=== PATIENT | male | born 1985 | race African-American/Black ===

== ENCOUNTER → 2016-09-20 | Day surgery (SDC) | payer OTHER ==
[~2016-09-20] VITALS: Ht 185.4 cm; Wt 6.0 kg
[~2016-09-20] MED LIST: BUPIVACAINE HCL PF 0.5% 30 ML VIAL NB ONE; DEXAMETHASONE SOD PHOS 4 MG/ML VIAL ONE; DICY10 PO; DO NOT ADM ANY ANTICOAGULANT DRUGS XX PRN; GENTAMICIN SULFATE 80 MG/2 ML VIAL ONE; HYDR-3533 PO; INSULIN HUMAN REGULAR 1,000 UNITS/10 ML VIAL SQ PRN; LACTATED RINGER'S 1000 ML INJ 1,000 ML IV ONE; LACTATED RINGER'S 1000 ML IV SCH; METOPROLOL TARTRATE 25 MG TAB PO PRN; MIDAZOLAM HCL 2 MG/2 ML VIAL ONE; MIDAZOLAM HCL 5 MG/5 ML VIAL ONE; MULTTAB67 PO; NEOSTIGMINE 3 MG/3 ML SYR IV ONE; ONDANSETRON HCL 4 MG/2 ML VIAL IV PUSH ONE; POVIDONE IODINE 7.5% SCRUB 118 ML BOTTLE TOP SCH; PROPOFOL 200 MG/20 ML AMP IV ONE; SODIUM CHLORID 0.9% 500 ML IV SCH; ZOFR4TAB3 SL; ceFAZolin 2 GM PREMIX 50 ML IV SCH; fentaNYL CITRATE 250 MCG/5 ML AMP ONE
[2016-09-20 13:52] VITALS: BP 123/77; PULSE 64; RESP 16; TEMP 98.2; O2SAT 98
[2016-09-20 14:28] LABS: AUTOMATED NEUTROPHIL # 1.9 TH/MM3 (1.8-7.7); BASOPHIL % 1.4 % (0.0-2.0); EOSINOPHIL # 0.2 TH/MM3 (0-0.4); EOSINOPHIL % 5.4 % (0.0-4.0); HEMATOCRIT 42.1 % (39.0-51.0); HEMO FLAGS DIFF FINAL; LYMPHOCYTE # 0.9 TH/MM3 (1.0-4.8); MEAN CELL VOLUME 80.4 FL (80.0-100.0); MEAN CORPUSCULAR HEMOGLOBIN 26.4 PG (27.0-34.0); MEAN CORPUSCULAR HGB CONC 32.9 % (32.0-36.0); MONO % 11.3 % (0.0-8.0); NEUT % 56.9 % (16.0-70.0); PLATELET COUNT 205 TH/MM3 (150-450); RED BLOOD COUNT 5.24 MIL/MM3 (4.50-5.90); RED CELL DISTRIBUTION WIDTH 13.2 % (11.6-17.2); WHITE BLOOD COUNT 3.4 TH/MM3 (4.0-11.0)
[2016-09-20 17:35] VITALS: BP 133/73; PULSE 60; RESP 20; TEMP 97.8; O2SAT 100
--- NOTE | 2016-09-20 17:39 | MP ---
cc: CHRISTIANO DUNN M.D. DATE OF SURGERY: 09/20/2016 PREOPERATIVE DIAGNOSIS: Left Achilles tendon rupture. POSTOPERATIVE DIAGNOSES Left Achilles tendon rupture. PROCEDURE Surgical repair left Achilles tendon rupture. SURGEON Dr. Christiano Dunn. CLIENT COORDINATOR: MERON Flaherty ANESTHESIA General as well as 50 cc. COMPLICATIONS: None. JUSTIFICATIONS: The patient is a 31-year male who injured his left leg and sustained a complete rupture of the Achilles tendon. He has had significant pain, swelling, weakness regards to his condition. He was evaluated by the undersigned at the [facility]. The patient counseled as and alternatives of named surgical procedure. He did wish to proceed with surgery. The procedure in detail, a written consent obtained. The patient identified by name, taken to the operating room, placed supine on operating room table, General anesthesia was administered as well 2 grams of IV Ancef. The patient was then carefully turned to a prone position. All bony prominences and pressure points were well padded. The left lower extremity prepped and draped using isopropyl alcohol, Hibiclens solution and DuraPrep solution. After appropriate time-out was performed a one inch incision was made over the posterior aspect of the left leg. Dissection was carried to the level of the Achilles tendon. There was evidence of complete rupture of the tendon with retraction of the proximal distal ends. A 10 blade scalpel used to perform debridement of tendon ends. #2 FiberWire suture was placed in a cracked whipstitch pattern in the proximal and distal portions of the tendons and the two tendon ends were then sutured together with a FiberWire. The repair was then further reinforced with a #0 Vicryl [id number] suture. The wound was thoroughly irrigated with sterile saline solution. The subcutaneous layer was then closed with 3-0 Vicryl suture. Skin was closed with Dermabond. Sterile dressing applied. The patient placed in a well-padded splint. He tolerated the procedure well. No intraoperative complications were noted. Miguel Guzman physician fiscal assistant was present the entire procedure to include patient positioning and the procedure itself the medical necessity of physician fiscal assistant indicated in different parts of the procedure. He assisted appropriate retraction of the soft tissues, also assisted with mobilization of the tendon ends and also assisted with surgical repair of the tendon rupture. MD Adrián Hlolis /4:16 PM /5:30 PM
== END | disposition home or self-care (01) ==
LOC: HSDC 13:33
PROVIDERS: ATTEND Orthopaedic Surgery Sports Medicine
DX: S86.012A Strain of left Achilles tendon, initial encounter (principal); Y93.67 Activity, basketball
CPT/HCPCS: 01472; 27650; 64450; 85025; 86850; 86900; 86901; J0690; J1100; J1580; J2250; J2405; J2710; J3010; J7120

== ENCOUNTER → 2016-10-09 | Outpatient (CLI) | payer OTHER ==
[~2016-10-09] MED LIST changes: -BUPIVACAINE HCL PF 0.5% 30 ML VIAL NB ONE; -DEXAMETHASONE SOD PHOS 4 MG/ML VIAL ONE; -DO NOT ADM ANY ANTICOAGULANT DRUGS XX PRN; -GENTAMICIN SULFATE 80 MG/2 ML VIAL ONE; -HYDR-3533 PO; -INSULIN HUMAN REGULAR 1,000 UNITS/10 ML VIAL SQ PRN; -LACTATED RINGER'S 1000 ML INJ 1,000 ML IV ONE; -LACTATED RINGER'S 1000 ML IV SCH; -METOPROLOL TARTRATE 25 MG TAB PO PRN; -MIDAZOLAM HCL 2 MG/2 ML VIAL ONE; -MIDAZOLAM HCL 5 MG/5 ML VIAL ONE; -NEOSTIGMINE 3 MG/3 ML SYR IV ONE; -ONDANSETRON HCL 4 MG/2 ML VIAL IV PUSH ONE; -POVIDONE IODINE 7.5% SCRUB 118 ML BOTTLE TOP SCH; -PROPOFOL 200 MG/20 ML AMP IV ONE; -SODIUM CHLORID 0.9% 500 ML IV SCH; -ceFAZolin 2 GM PREMIX 50 ML IV SCH; -fentaNYL CITRATE 250 MCG/5 ML AMP ONE
== END ==
LOC: HORT 16:15
PROVIDERS: ATTEND Orthopaedic Surgery Sports Medicine
DX: M66.861 Spontaneous rupture of other tendons, right lower leg (principal)
CPT/HCPCS: L2114

== ENCOUNTER 2016-11-24 07:56 | Emergency (ER) | payer OTHER ==
[~2016-11-24] VITALS: Ht 182.9 cm; Wt 68.0 kg
[~2016-11-24 07:56] MED LIST changes: -DICY10 PO; -ZOFR4TAB3 SL
[2016-11-24 07:58] VITALS: BP 128/82; PULSE 68; RESP 16; TEMP 97.5; O2SAT 98
[2016-11-24 08:05] VITALS: BP 122/68; PULSE 59; RESP 16; O2SAT 97
[2016-11-24] MEDS ORDERED: SODIUM CHLOR 0.9% 1000 ML INJ 1,000 ML IV SCH (08:35)
--- NOTE | 2016-11-24 08:39 | PD ---
HPI Chief Complaint: GI Complaint Time Seen by Provider: 08:35 Travel History International Travel<30 days: Yes Contact w/Intl Traveler<30days: Yes Name of Country Traveled to: [place], RETURNED11/19/16 Traveled to known affect area: Yes History of Present Illness HPI 31-year-old male with history of no significant past medical issues, presents to the ER today with sudden onset of periumbilical abdominal pains, nausea, vomiting starting last night. He states the pain is currently a 7 out of 10 without known alleviating or exacerbating factors. He denies any fevers, diarrhea, urinary symptoms, or any other symptoms. He denies any previous history of abdominal pains. He does not know any sick contacts. However, he did return from a cruise this week. Modifying Factors: None Associated Signs & Symptoms: Nausea, vomiting, abdominal pain Risk Factors: None PFSH Past Medical History Cancer: No Cardiovascular Problems: No Diabetes: No Endocrine: No Genitourinary: No Hepatitis: No Hiatal Hernia: No Immune Disorder: No Musculoskeletal: Yes (SPORTS INJURY) Neurologic: No Psychiatric: No Reproductive: No Respiratory: No Thyroid Disease: No Past Surgical History AICD: No Joint Replacement: No Pacemaker: No Other Surgery: Yes (L achilles repair) Social History Alcohol Use: Yes (occ) Tobacco Use: No Substance Use: No Allergies-Medications (Allergen,Severity, Reaction): Coded Allergies: No Known Allergies (Unverified , 09/20/16) Reported Meds & Prescriptions Reported Meds & Active Scripts Active Reported Multiple Vitamin 1 Tab 1 Tab PO DAILY Review of Systems Except as stated in HPI: all other systems reviewed are Neg Physical Exam Narrative GENERAL: Young -[place] male patient in moderate distress, with abdominal pains. He is awake, alert, oriented 3. SKIN: Warm and dry. HEAD: Atraumatic. Normocephalic. EYES: Pupils equal and round. No scleral icterus. No injection or drainage. ENT: No nasal bleeding or discharge. Mucous membranes pink and moist. NECK: Trachea midline. No JVD. CARDIOVASCULAR: Regular rate and rhythm. No murmur appreciated. RESPIRATORY: No accessory muscle use. Clear to auscultation. Breath sounds equal bilaterally. GASTROINTESTINAL: Abdomen soft, diffuse abdominal tenderness, mild guarding with no rebound, nondistended. Hepatic and splenic margins not palpable. MUSCULOSKELETAL: No obvious deformities. No clubbing. No cyanosis. No edema. NEUROLOGICAL: Awake and alert. No obvious cranial nerve deficits. Motor grossly within normal limits. Normal speech. PSYCHIATRIC: Appropriate mood and affect; insight and judgment normal. Data Data Last Documented VS Vital Signs Date Time Temp Pulse Resp B/P Pulse Ox O2 Delivery O2 Flow Rate FiO2 11/24/16 10:23 74 20 125/76 100 11/24/16 08:05 Room Air 11/24/16 07:58 97.5 Orders Complete Blood Count With Diff (11/24/16 08:35) Comprehensive Metabolic Panel (11/24/16 08:35) Lipase (11/24/16 08:35) Urinalysis - C+S If Indicated (11/24/16 08:35) Ct Abd/Pel W Iv Contrast(Rout) (11/24/16 08:35) Iv Access Insert/Monitor (11/24/16 08:35) Ecg Monitoring (11/24/16 08:35) Oximetry (11/24/16 08:35) Ondansetron Inj (Zofran Inj) (11/24/16 08:45) Sodium Chlor 0.9% 1000 Ml Inj (Ns 1000 M (11/24/16 08:35) Sodium Chloride 0.9% Flush (Ns Flush) (11/24/16 08:45) Hydromorphone Pf Inj (Dilaudid Pf Inj) (11/24/16 08:45) Iohexol 350 Inj (Omnipaque 350 Inj) (11/24/16 09:45) Dicyclomine Inj (Bentyl Inj) (11/24/16 10:30) Labs Laboratory Tests Test 11/24/16 11/24/16 08:40 10:00 White Blood Count 6.8 TH/MM3 Red Blood Count 5.05 MIL/MM3 Hemoglobin 13.5 GM/DL Hematocrit 40.7 % Mean Corpuscular Volume 80.7 FL Mean Corpuscular Hemoglobin 26.8 PG Mean Corpuscular Hemoglobin 33.2 % Concent Red Cell Distribution Width 13.8 % Platelet Count 181 TH/MM3 Mean Platelet Volume 7.4 FL Neutrophils (%) (Auto) 77.0 % Lymphocytes (%) (Auto) 13.2 % Monocytes (%) (Auto) 7.0 % Eosinophils (%) (Auto) 2.1 % Basophils (%) (Auto) 0.7 % Neutrophils # (Auto) 5.3 TH/MM3 Lymphocytes # (Auto) 0.9 TH/MM3 Monocytes # (Auto) 0.5 TH/MM3 Eosinophils # (Auto) 0.1 TH/MM3 Basophils # (Auto) 0.0 TH/MM3 CBC Comment DIFF FINAL Differential Comment Sodium Level 137 MEQ/L Potassium Level 3.6 MEQ/L Chloride Level 102 MEQ/L Carbon Dioxide Level 28.2 MEQ/L Anion Gap 7 MEQ/L Blood Urea Nitrogen 20 MG/DL Creatinine 1.07 MG/DL Estimat Glomerular Filtration 98 ML/MIN Rate Random Glucose 112 MG/DL Calcium Level 8.6 MG/DL Total Bilirubin 0.7 MG/DL Aspartate Amino Transf 15 U/L (AST/SGOT) Alanine Aminotransferase 16 U/L (ALT/SGPT) Alkaline Phosphatase 49 U/L Total Protein 7.2 GM/DL Albumin 3.9 GM/DL Lipase 131 U/L Urine Color LIGHT-YELLOW Urine Turbidity CLEAR Urine pH 7.0 Urine Specific [place] 1.028 Urine Protein NEG mg/dL Urine Glucose (UA) NEG mg/dL Urine Ketones TRACE mg/dL Urine Occult Blood NEG Urine Nitrite NEG Urine Bilirubin NEG Urine Urobilinogen LESS THAN 2.0 MG/DL Urine Leukocyte Esterase NEG Microscopic Urinalysis Comment CULT NOT INDICATED MDM Medical Decision Making Medical Screen Exam Complete: Yes Emergency Medical Condition: Yes Medical Record Reviewed: Yes Interpretation(s) Laboratory Tests Test 11/24/16 11/24/16 08:40 10:00 Mean Corpuscular Hemoglobin 26.8 PG (27.0-34.0) Neutrophils (%) (Auto) 77.0 % (16.0-70.0) Lymphocytes # (Auto) 0.9 TH/MM3 (1.0-4.8) Blood Urea Nitrogen 20 MG/DL (7-18) Random Glucose 112 MG/DL (74-106) Urine Ketones TRACE mg/dL (NEG) Last 24 hours Impressions Abdomen/Pelvis CT 11/24/16 0835 Signed Impressions: Service Date/Time: Thursday, November 24, 2016 09:41 - CONCLUSION: 1. There is a small volume of free fluid in the pelvis which is an abnormal finding but I do not see an etiology for the fluid. Consider followup if the clinical symptoms persist. 2. There is a 10 mm simple benign right hepatic cyst. Kishore Hammond MD Differential Diagnosis Nausea, vomiting, abdominal painsgastroenteritis versus gastritis versus food poisoning versus dehydration versus metabolic issues versus appendicitis versus other acute intra-abdominal processes Narrative Course Patient was initiated on IV fluids, Dilaudid, Zofran and CAT scan was ordered. Lab work and CAT scan did not show obvious acute processes. Patient did have some more pain after Dilaudid was initially given and Bentyl was given. On reevaluation at 10:40 AM, his pain was significantly improved and a reevaluation of his abdominal exam shows that he is less tender with no guarding or rebound. At this point, I have talked to the patient regarding findings, discussed outpatient therapy versus observation admission, and he is agreeable for further symptomatic therapy as an outpatient. He was cautioned to return for any worsening in pain, vomiting, fevers, or new symptoms as needed. I have talked him about the fact that early processes can be difficult to diagnose and patient states understanding. Diagnosis Primary Impression: UNSPECIFIED ABDOMINAL PAIN Med/Other Pt SpecificInfo: Prescription(s) given Scripts Ondansetron Odt (Zofran Odt)4 Mg Tab4 Mg SL Q6HR PRN (Nausea/Vomiting) #7 TAB Ref 0 Prov:Sheyla Olivas MD 11/24/16 Dicyclomine (Bentyl)10 Mg Cap10 Mg PO TID PRN (Bowel Management) #15 CAP Ref 0 Prov:Sheyla Olivas MD 11/24/16 Disposition: 01 DISCHARGE HOME Condition: Stable Sheyla Olivas MD Nov 24, 2016 08:39
[2016-11-24 08:44] VITALS: RESP 24; O2SAT 100
[2016-11-24] MEDS ORDERED: ONDANSETRON HCL 4 MG/2 ML VIAL IVP ONE (08:45)
[2016-11-24] MEDS ORDERED: HYDROmorphone HCL PF 1 MG/ML VIAL IVS ONE (08:45)
[2016-11-24] MEDS ORDERED: SODIUM CHLORIDE 0.9% FLUSH 5 ML FLUSH IVF PRN (08:45)
[2016-11-24 09:07] LABS: AUTOMATED NEUTROPHIL # 5.3 TH/MM3 (1.8-7.7); BASOPHIL % 0.7 % (0.0-2.0); EOSINOPHIL # 0.1 TH/MM3 (0-0.4); EOSINOPHIL % 2.1 % (0.0-4.0); HEMATOCRIT 40.7 % (39.0-51.0); HEMO FLAGS DIFF FINAL; LYMPH % 13.2 % (9.0-44.0); LYMPHOCYTE # 0.9 TH/MM3 (1.0-4.8); MEAN CELL VOLUME 80.7 FL (80.0-100.0); MEAN CORPUSCULAR HEMOGLOBIN 26.8 PG (27.0-34.0); MEAN CORPUSCULAR HGB CONC 33.2 % (32.0-36.0); PLATELET COUNT 181 TH/MM3 (150-450); RED BLOOD COUNT 5.05 MIL/MM3 (4.50-5.90); RED CELL DISTRIBUTION WIDTH 13.8 % (11.6-17.2); WHITE BLOOD COUNT 6.8 TH/MM3 (4.0-11.0)
[2016-11-24 09:12] LABS: ANION GAP 7 MEQ/L (5-15); AST (GOT) 15 U/L (15-37); BICARBONATE 28.2 MEQ/L (21.0-32.0); BLOOD UREA NITROGEN 20 MG/DL (7-18); CHLORIDE 102 MEQ/L (98-107); GLOMERULAR FILTRATION RATE 98 ML/MIN (>89); POTASSIUM 3.6 MEQ/L (3.5-5.1); SODIUM (NA) 137 MEQ/L (136-145)
[2016-11-24 09:15] LABS: ALKALINE PHOSPHATASE 49 U/L (45-117); ALT (GPT) 16 U/L (12-78); TOTAL BILIRUBIN ADULT 0.7 MG/DL (0.2-1.0)
[2016-11-24] MEDS ORDERED: IOHEXOL 350 MG/ML 10 ML VIAL (for RAD DIAG) IV ONE (09:45)
--- NOTE | 2016-11-24 09:56 | RADRPT ---
EXAM DATE/TIME: 11/24/2016 09:41 [facility] COMPARISON: No previous studies available for comparison. INDICATIONS : Epigastric pain with nausea, vomiting and diarrhea. IV CONTRAST: 89 cc Omnipaque 350 (iohexol) IV ORAL CONTRAST: No oral contrast ingested. RADIATION DOSE: 5.42 CTDIvol (mGy) MEDICAL HISTORY : None SURGICAL HISTORY : None. ENCOUNTER: Initial ACUITY: 1 day PAIN SCALE: 4/10 LOCATION: Bilateral upper quadrant TECHNIQUE: Volumetric scanning of the abdomen and pelvis was performed. Using automated exposure control and ad justment of the mA and/or kV according to patient size, radiation dose was kept as low as reasonably achievable to obtain optimal diagnostic quality images. FINDINGS: LOWER LUNGS: The visualized lower lungs are clear. LIVER: Homogeneous density without a significant lesion. There is a 10 mm low density lesion at the liver do me with features characteristic of a simple cyst. There is no dilation of the biliary tree. No calc ified gallstones. SPLEEN: Normal size without lesion. PANCREAS: Within normal limits. KIDNEYS: Normal in size and shape. There is no mass, stone or hydronephrosis. ADRENAL GLANDS: Within normal limits. VASCULAR: There is no aortic aneurysm. BOWEL/MESENTERY: The stomach, small bowel, and colon demonstrate no acute abnormality. There is no free intraperitone al air. There is a small volume of free fluid in the pelvis. The appendix is not visualized. ABDOMINAL WALL: Within normal limits. RETROPERITONEUM: There is no lymphadenopathy. BLADDER: No wall thickening or mass. REPRODUCTIVE: Within normal limits. INGUINAL: There is no lymphadenopathy or hernia. MUSCULOSKELETAL: Within normal limits for patient age. CONCLUSION: 1. There is a small volume of free fluid in the pelvis which is an abnormal finding but I do not see an etiology for the fluid. Consider followup if the clinical symptoms persist. 2. There is a 10 mm simple benign right hepatic cyst. Kishore Hammond MD on November 24, 2016 at 9:51 Board Certified Radiologist. This report was verified electronically.
[2016-11-24 10:23] VITALS: BP 125/76; PULSE 74; RESP 20; O2SAT 100
[2016-11-24 10:30] LABS: BLOOD, URINE NEG (NEG); COMMENT (UR) CULT NOT INDICATED; CULTURE IF INDICATED CULT NOT INDICATED; GLUCOSE,URINE NEG (NEG); KETONE, URINE TRACE mg/dL (NEG); NITRITE,URINE NEG (NEG); URINE COLOR LIGHT-YELLOW (YELLW/STRAW)
[2016-11-24] MEDS ORDERED: DICYCLOMINE HCL 20 MG/2 ML VIAL IM ONE (10:30)
[2016-11-24] MEDS ORDERED: ZOFR4TAB3 SL (10:43)
[2016-11-24] MEDS ORDERED: DICY10 PO (10:43)
== END 2016-11-24 11:10 | disposition home or self-care (01) ==
LOC: NEPE 07:56
DX: R10.9 Unspecified abdominal pain (principal); R11.2 Nausea with vomiting, unspecified; Z87.39 Personal history of other diseases of the musculoskeletal system and connective tissue
CPT/HCPCS: 74177; 80053; 81001; 83690; 85025; 96361; 96372; 96374; 96375; 99284; J0500; J1170; J2405; J7030; Q9967